=== PATIENT | male | born 2000 | race Caucasian/White ===

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

== ENCOUNTER 2022-03-09 17:09 | Emergency (ER) | payer MEDICAID, OTHER ==
[~2022-03-09] VITALS: Ht 175.3 cm; Wt 60.8 kg
[2022-03-09 17:23] VITALS: BP 122/70
--- NOTE | 2022-03-09 17:32 | NUR ---
PT AMB TO BED 8.
[2022-03-09] MEDS ORDERED: KETOROLAC 30 MG/ML VIAL IVP ONE (17:45)
[2022-03-09] MEDS ORDERED: ONDANSETRON 4 MG/2 ML VIAL IVP ONE (17:45)
[2022-03-09] MEDS ORDERED: NACL 0.9% 1,000 ML IV ONE (17:45)
--- NOTE | 2022-03-09 18:07 | NUR ---
IVP meds given-nadr at this time
[2022-03-09] MEDS ORDERED: IBUP-2213 PO (18:40)
[2022-03-09] MEDS ORDERED: ONDA8TAB87 PO (18:40)
--- NOTE | 2022-03-09 18:51 | NUR ---
Patient discharged with v/s stable. Written and verbal after care instructions given. Patient alert, oriented and verbalized understanding of instructions. Ambulatory with steady gait. All questions addressed prior to discharge. ID band removed. Patient advised to follow up with PMD. Rx of Zofran and Motrin given. Opportunity to ask questions provided and answered.
--- NOTE | 2022-03-09 18:52 | NUR ---
Chart checked and completed. The patient's care was reviewed and supervised by Celi Baugh RN.
== END 2022-03-09 18:51 | disposition home or self-care (01) ==
LOC: MED 17:09
DX: R42 Dizziness and giddiness (principal); R11.0 Nausea; R10.13 Epigastric pain
CPT/HCPCS: 81002; 96361; 96374; 96375; 99284; J1885; J2405; J7030

== ENCOUNTER 2024-08-15 11:24 | Emergency (ER) | payer OTHER ==
[~2024-08-15] VITALS: Ht 172.7 cm; Wt 74.8 kg
[~2024-08-15 11:24] MED LIST: IBUP-2213 PO; ONDA8TAB87 PO
[2024-08-15 11:45] VITALS: BP 121/79; PULSE 85; RESP 17; TEMP 97.6; O2SAT 98
[2024-08-15] MEDS ORDERED: DICL100G32 TP (12:20)
[2024-08-15] MEDS ORDERED: ONDA-188 SL (12:20)
[2024-08-15] MEDS ORDERED: IBUP-2213 PO (12:20)
[2024-08-15 13:02] VITALS: BP 121/79; PULSE 85; RESP 17; TEMP 97.6; O2SAT 98
== END 2024-08-15 13:00 | disposition home or self-care (01) ==
LOC: MED 11:24
DX: S16.1XXA Strain of muscle, fascia and tendon at neck level, initial encounter (principal); G44.209 Tension-type headache, unspecified, not intractable; R11.0 Nausea; Z79.899 Other long term (current) drug therapy; X58.XXXA Exposure to other specified factors, initial encounter; Y92.89 Other specified places as the place of occurrence of the external cause; Y93.89 Activity, other specified; Y99.8 Other external cause status
CPT/HCPCS: 99283